=== PATIENT | male | born 1995 | race Caucasian/White ===

== ENCOUNTER 2018-02-07 17:27 | Emergency (ER) | payer SELFPAY ==
--- NOTE | 2018-02-07 19:30 | RAD REPORT ---
EXAM DESCRIPTION: RAD - Wrist Right 3 View - 02/07/2018 7:07 pm CLINICAL HISTORY: Injury, wrist pain, pain localizes to the triquetrum and fusiform bone region COMPARISON: None. FINDINGS: No fractures identified. There is no dislocation or periosteal reaction. Triquetrum and fu siform bones are difficult to assess on plain film. There is no dislocation or periosteal reaction no tanmay. Distal radius and ulna are intact. No foreign body or other soft tissue abnormality. IMPRESSION: No fracture or acute bone finding confirmed on this study. Continued, unexplained pain symptoms can be further addressed with MR imaging of the wrist.
--- NOTE | 2018-02-07 19:51 | EDPHYS ---
Physician Documentation [facility] Name: Yan Adams Age: 22 yrs Sex: Male : 1995 Arrival Date: 02/07/2018 Time: 17:29 Bed 23 Private MD: ED Physician Uriel Restrepo HPI: 02/07 18:05 This 22 yrs old Male presents to ER via Ambulatory with complaints of Wrist cp Injury. 18:05 The patient or guardian reports decreased range of motion, injury, pain, swelling, cp tenderness. Context: resulted from a fall, while playing basketball, on an outstretched hand. Onset: The symptoms/episode began/occurred yesterday. Modifying factors: the symptoms are aggravated by movement. Associated signs and symptoms: Pertinent negatives: cyanosis distally, decreased sensation distally, fever. Historical: - Allergies: 17:31 J\T\J band aids; hj 17:31 Morphine; hj - Home Meds: 17:31 None [Active]; hj - PMHx: 17:31 None; hj - PSHx: 17:31 L wrist; R shoulder; Appendectomy; Tonsillectomy; hj - Immunization history:: Adult Immunizations up to date. - Social history:: Smoking status: Patient/guardian denies using tobacco, never smoked. ROS: 18:10 Constitutional: Negative for body aches, chills, fever, poor PO intake. cp 18:10 Eyes: Negative for injury, pain, redness, and discharge. cp 18:10 Cardiovascular: Negative for chest pain, edema, palpitations. 18:10 Respiratory: Negative for cough, shortness of breath, wheezing. 18:10 Abdomen/GI: Negative for abdominal pain, nausea, vomiting, and diarrhea. 18:10 MS/extremity: Positive for decreased range of motion, pain, swelling, tenderness, of the right wrist, Negative for paresthesias. 18:10 Skin: Negative for cellulitis, laceration(s), rash. 18:10 All other systems are negative. Exam: 18:18 Constitutional: The patient appears in no acute distress, alert, awake, non-toxic, well cp developed, well nourished. 18:18 Head/Face: Normocephalic, atraumatic. cp 18:18 Eyes: Periorbital structures: appear normal, Conjunctiva: normal, no exudate, no injection, Lids and lashes: appear normal, bilaterally. 18:18 ENT: External ear(s): are unremarkable, Nose: is normal, Mouth: is normal, Posterior pharynx: is normal, airway is patent. 18:18 Neck: ROM/movement: is normal, is supple, without pain, no range of motions limitations, no nuchal rigidity. 18:18 Chest/axilla: Inspection: normal. 18:18 Cardiovascular: Rate: normal, Rhythm: regular, Pulses: Pulses are 2+ in right radial artery and left radial artery. 18:18 Respiratory: the patient does not display signs of respiratory distress, Respirations: normal, no use of accessory muscles, no retractions, no splinting, no tachypnea, labored breathing, is not present. 18:18 Abdomen/GI: Exam negative for discomfort, distension, guarding, Inspection: abdomen appears normal. 18:18 Musculoskeletal/extremity: Extremities: grossly normal except: noted in the ulna side right wrist: decreased ROM, pain, swelling, tenderness, ROM: limited passive range of motion due to pain, in the right wrist, Perfusion: the extremity is normally perfused throughout, Sensation intact. 18:18 Skin: cellulitis, is not appreciated, no rash present. Vital Signs: 17:31 BP 126 / 84; Pulse 68; Resp 18; Temp 98.3(TE); Pulse Ox 99% on R/A; Weight 69.85 kg; hj Height 5 ft. 10 in. (177.80 cm); Pain 10/10; 18:52 BP 124 / 80; Pulse 72; Resp 16; Pulse Ox 99% ; tl3 20:10 BP 133 / 68; Pulse 78; Resp 18; Pulse Ox 100% on R/A; tl3 17:31 Body Mass Index 22.10 (69.85 kg, 177.80 cm) hj MDM: 17:36 Patient medically screened. cp 18:30 Differential diagnosis: dislocation, closed fracture, contusion, tendonitis. cp 19:48 Data reviewed: vital signs, nurses notes, radiologic studies, plain films. cp 19:48 Test interpretation: by ED physician or midlevel provider: plain radiologic studies. cp Counseling: I had a detailed discussion with the patient and/or guardian regarding: the historical points, exam findings, and any diagnostic results supporting the discharge/admit diagnosis, radiology results, the need for outpatient follow up, a orthopedic surgeon, to return to the emergency department if symptoms worsen or persist or if there are any questions or concerns that arise at home. Response to treatment: the patient's symptoms have mildly improved after treatment. 02/07 17:55 Order name: XRAY Wrist RIGHT 3 view; Complete Time: 19:43 cp 02/07 19:48 Order name: Splint - Wrist; Complete Time: 20:03 cp Administered Medications: 20:00 Drug: Ibuprofen 800 mg Route: PO; tl3 20:36 Follow up: Response: No adverse reaction; Medication administered at discharge. tl3 Disposition: 23:28 Co-signature as Attending Physician, Uriel Restrepo MD I agree with the assessment and kdr plan of care. Disposition: 02/07/18 19:50 Discharged to Home. Impression: Right Wrist Injury. - Condition is Stable. - Discharge Instructions: Wrist Pain. - Prescriptions for Naprosyn 500 mg Oral Tablet - take 1 tablet by ORAL route 2 times per day take with food; 30 tablet. Tramadol 50 mg Oral Tablet - take 1 tablet by ORAL route every 8 hours as needed; 12 tablet. - Medication Reconciliation Form, Thank You Letter, Antibiotic Education, Prescription Opioid Use form. - Follow up: Alfonso Porras MD; When: 2 - 3 days; Reason: Recheck today's complaints. - Problem is new. - Symptoms have improved. Signatures: Dispatcher [employer] EDUriel Tai MD MD kdr Joaquin, Henry, RN RN Nicho José PA PA cp Lowrey, Tammy, RN RN tl3
--- NOTE | 2018-02-07 19:51 | ER ---
Nurse's Notes [facility] Name: Yan Adams Age: 22 yrs Sex: Male : 1995 Arrival Date: 02/07/2018 Time: 17:29 Bed 23 Private MD: Diagnosis: Right Wrist Injury Presentation: 02/07 17:29 Presenting complaint: Patient states: yesterday, i fell while playing basketball, and hj hurt my R wrist, it looks swollen now when i woke up;. Transition of care: patient was not received from another setting of care. Onset of symptoms was February 07, 2018. Care prior to arrival: None. 17:29 Method Of Arrival: Ambulatory 17:29 Acuity: JUICE 4 hj Triage Assessment: 17:31 General: Appears in no apparent distress. uncomfortable, Behavior is calm, cooperative, hj appropriate for age. Pain: Complains of pain in dorsal aspect of right wrist. Musculoskeletal: Reports pain in dorsal aspect of right wrist. 17:33 Injury Description: Crush injury. hj Historical: - Allergies: 17:31 J\T\J band aids; hj 17:31 Morphine; hj - Home Meds: 17:31 None [Active]; hj - PMHx: 17:31 None; hj - PSHx: 17:31 L wrist; R shoulder; Appendectomy; Tonsillectomy; hj - Immunization history:: Adult Immunizations up to date. - Social history:: Smoking status: Patient/guardian denies using tobacco, never smoked. Screenin:42 Abuse screen: Denies threats or abuse. Nutritional screening: No deficits noted. tl3 Tuberculosis screening: No symptoms or risk factors identified. Fall Risk None identified. Assessment: 17:42 General: Appears in no apparent distress. comfortable, slender, well groomed, well tl3 developed, well nourished, Behavior is calm, cooperative, appropriate for age. Pain: Complains of pain in lateral aspect of right hand and medial aspect of right hand Pain currently is 9 out of 10 on a pain scale. Neuro: Level of Consciousness is awake, alert, obeys commands, Oriented to person, place, time, situation, Appropriate for age. Cardiovascular: Heart tones S1 S2 present. Respiratory: Breath sounds are clear bilaterally. GI: No signs and/or symptoms were reported involving the gastrointestinal system. : No signs and/or symptoms were reported regarding the genitourinary system. EENT: No signs and/or symptoms were reported regarding the EENT system. Derm: No signs and/or symptoms reported regarding the dermatologic system. Musculoskeletal: Capillary refill < 3 seconds, in right fingers. pt wearing wrist splint. Injury Description: pt injured right wrist playing basketball yesterday, had wrist splint at home and utilized it for comfort, has been taking Motrin for pain, but hasn't had ant since this am. 18:52 Reassessment: Patient appears in no apparent distress at this time. No changes from tl3 previously documented assessment. Patient and/or family updated on plan of care and expected duration. Pain level reassessed. Patient is alert, oriented x 3, equal unlabored respirations, skin warm/dry/pink. waiting for results of x-ray. Vital Signs: 17:31 BP 126 / 84; Pulse 68; Resp 18; Temp 98.3(TE); Pulse Ox 99% on R/A; Weight 69.85 kg; Height 5 ft. 10 in. (177.80 cm); Pain 10/10; 18:52 BP 124 / 80; Pulse 72; Resp 16; Pulse Ox 99% ; tl3 20:10 BP 133 / 68; Pulse 78; Resp 18; Pulse Ox 100% on R/A; tl3 17:31 Body Mass Index 22.10 (69.85 kg, 177.80 cm) ED Course: 17:29 Patient arrived in ED. hj 17:30 Triage completed. hj 17:31 Arm band placed on left wrist. hj 17:36 Nicho Larose PA is PHCP. cp 17:36 Uriel Restrepo MD is Attending Physician. cp 17:37 Joseline Vega, SHABBIR is Primary Nurse. tl3 17:42 No apparent distress. Awaiting for x-ray. tl3 17:42 Patient has correct armband on for positive identification. Call light in reach. tl3 17:42 No provider procedures requiring assistance completed. Patient did not have IV access tl3 during this emergency room visit. 19:04 X-ray completed. Portable x-ray completed in exam room. Patient tolerated procedure la2 well. 19:05 XRAY Wrist RIGHT 3 view In Process Unspecified. EDMS 19:49 Alfonso Porras MD is Referral Physician. cp 20:10 Velcro wrist splint applied to right wrist. tl3 Administered Medications: 20:00 Drug: Ibuprofen 800 mg Route: PO; tl3 20:36 Follow up: Response: No adverse reaction; Medication administered at discharge. tl3 Outcome: 19:50 Discharge ordered by . cp 20:16 Patient left the ED. tl3 20:36 Discharged to home ambulatory. tl3 20:36 Condition: good 20:36 Discharge instructions given to patient, Instructed on discharge instructions, follow up and referral plans. medication usage, Demonstrated understanding of instructions, follow-up care, medications, Prescriptions given X 2, stressed rest, ice and elevation of right wrist, using splint for comfort and support Signatures: Dispatcher [employer] EDMS Noah Musa RN RN Nicho José PA PA cp Ardoin, Leslie la2 Joseline Vega, SHABBIR RN tl3 Corrections: (The following items were deleted from the chart) 17:33 17:31 Pulse 68bpm; Resp 18bpm; Pulse Ox 99% RA; Temp 98.3F Temporal; 69.85 kg; Height 5 hj ft. 10 in.; BMI: 22.1; Pain 10/10; hj 23:17 20:16 Patient left the ED. tl3 tl3
[2018-02-07] MEDS ORDERED: IBUPROFEN 400 MG TAB ONE (20:04)
== END 2018-02-07 20:16 | disposition home or self-care (01) ==
LOC: ER 17:27
DX: S69.91XA Unspecified injury of right wrist, hand and finger(s), initial encounter (principal); W19.XXXA Unspecified fall, initial encounter; Y93.67 Activity, basketball; Y92.9 Unspecified place or not applicable; Z88.5 Allergy status to narcotic agent; Z91.048 Other nonmedicinal substance allergy status
CPT/HCPCS: 99284

== ENCOUNTER 2020-03-05 08:44 | Emergency (ER) | payer SELFPAY ==
[2020-03-05 09:34] LABS: Urine Blood NEGATIVE (NEG); Urine Glucose NEGATIVE (NEG); Urine Protein NEGATIVE (NEG); Urine Specific Gravity 1.025 (1.005-1.030); Urine pH 8.5 (5.0-7.0)
--- OUTSIDE RECORDS SUMMARY | 2020-03-05 09:36 | XMS REPORT | Summary of Care ---
:1995 Author Organization [facility] Address [address] [place] [address] Care Team Providers Name Role Phone Zeferino Palafox MD Primary Care Provider Encounter Details Date Type Department Care Team Description 01/21/2020 Letter (Out) [facility] Family Travis Yeager FNP Medicine [facility] [address] [facility] [address] [address] [place] [address] [phone] Allergies No Known Allergiesdocumented as of this encounter (statuses as of 01/21/2020) Medications Medication Sig Dispensed Refills Start Date End Date Status acetaminophen 650 mg Take 1 tablet by 20 tablet 0 01/19/2020 Active CR tabletIndications: mouth every 8 Flu-like symptoms (eight) hours as needed for Pain. fluticasone propionate Use 1 [place] in 16 g 0 01/19/2020 Active 50 mcg/actuation nasal each nostril sprayIndications: daily. Flu-like symptoms brompheniramine-pseudo Take 10 mL by 120 mL 0 01/19/2020 Active ephedrine-DM (BROMFED mouth 4 (four) DM) 2-30-10 mg/5 mL times daily as syrupIndications: needed for Flu-like symptoms Congestion/Aller gies. ondansetron (ZOFRAN) 4 Take 1 tablet by 40 tablet 0 01/20/2020 02/03/2020 Active mg tabletIndications: mouth every 8 Nausea (eight) hours as needed for Nausea and Vomiting (N/V) for up to 14 days. documented as of this encounter (statuses as of 01/21/2020) Active Problems Problem Noted Date Flu-like symptoms 01/19/2020 Current smoker 01/19/2020 documented as of this encounter (statuses as of 01/21/2020) Social History Tobacco Use Types Packs/Day Years Used Date Never Assessed Sex Assigned at Date Recorded Not on file Job Start Date Occupation Industry Not on file Not on file Not on file Travel History Travel Start Travel End No recent travel history available. documented as of this encounter Last Filed Vital Signs Not on filedocumented in this encounter Plan of Treatment Health Maintenance Due Date Last Done Comments VARICELLA VACCINES (1 of 2 - 1994 2-dose childhood series) DTaP,Tdap,and Td Vaccines (1 - 2004 Tdap) INFLUENZA VACCINE (#1) 2019 HPV VACCINES Aged Out No longer eligib le based on patient's age to complete this topic PNEUMOCOCCAL 0-64 YEARS COMBINED Aged Out No longer eligible based on SERIES patient's age to complete this topic documented as of this encounter Results Not on filedocumented in this encounter
--- OUTSIDE RECORDS SUMMARY | 2020-03-05 09:36 | XMS REPORT | Summary of Care ---
:1995 Author Organization [facility] Address [address] [place] [address] Care Team Providers Name Role Phone Zeferino Palafox MD Primary Care Provider Reason for Visit Reason Comments Results Encounter Details Date Type Department Care Team Description 01/21/2020 Telephone [facility] Jelena Riggs RN Results [address] [phone] [place] [address] Allergies No Known Allergiesdocumented as of this encounter (statuses as of 01/21/2020) Medications Medication Sig Dispensed Refills Start Date End Date Status acetaminophen 650 mg Take 1 tablet by 20 tablet 0 01/19/2020 Active CR tabletIndications: mouth every 8 Flu-like symptoms (eight) hours as needed for Pain. fluticasone propionate Use 1 [place] in 16 g 0 01/19/2020 Active 50 [...]
--- OUTSIDE RECORDS SUMMARY | 2020-03-05 09:36 | XMS REPORT | Summary of Care ---
:1995 Author Organization [facility] Address [address] [place] [address] Care Team Providers Name Role Phone Zeferino Palafox MD Primary Care Provider Encounter Details Date Type Department Care Team Description 01/21/2020 Letter (Out) [facility] Ester Mendez FNP Urgent Care [address] [place] [address] [address] [place] [address] [place] [address] [phone] Allergies No Known Allergiesdocumented as of this encounter (statuses as of 01/21/2020) Medications Medication Sig Dispensed Refills Start Date End Date Status acetaminophen 650 mg Take 1 tablet by 20 tablet 0 01/19/2020 Active CR tabletIndications: mouth every 8 Flu-like symptoms (eight) hours as needed for Pain. fluticasone propionate Use 1 [place] in 16 g 0 01/19/2020 Active 50 [...] 1994 2-dose childhood series) DTaP,Tdap,and Td Vaccines ( - 2004 Tdap) INFLUENZA VACCINE (#1) 2019 HPV VACCINES Aged Out No longer eligib le based on patient's age to complete this topic PNEUMOCOCCAL 0-64 YEARS COMBINED Aged Out No longer eligible based on SERIES patient's age to complete this topic documented as of this encounter Results Not on filedocumented in this encounter
--- OUTSIDE RECORDS SUMMARY | 2020-03-05 09:36 | XMS REPORT | Summary of Care ---
:1995 Author Organization [facility] - [facility] Address [address] [place] [address] Care Team Providers Name Role Phone Zeferino Palafox MD Primary Care Provider Reason for Visit Reason Comments Headache Nausea Fever Chills Encounter Details Date Type Department Care Team Description 01/20/2020 Urgent Care [facility] Family Travis Yeager, VICE [employer]IDENT [employer] [address] [address] URI, acute (Primary Dx); Medicine - [facility] Fever, unspecified fever cause; [facility] Nausea; [employer], [place] Chronic migrain e; [id number] Seasonal allergies [phone] Allergies No Known Allergiesdocumented as of this encounter (statuses as of 01/20/2020) Medications Medication Sig Dispensed Refills Start Date End Date Status acetaminophen 650 mg Take 1 tablet by 20 tablet 0 01/19/2020 Active CR tabletIndications: mouth every 8 Flu-like symptoms (eight) hours as needed for Pain. fluticasone propionate Use 1 [place] in 16 g 0 01/19/2020 Active 50 [...] as of this encounter (statuses as of 01/20/2020) Active Problems Problem Noted Date Flu-like symptoms 01/19/2020 Current smoker 01/19/2020 documented as of this encounter (statuses as of 01/20/2020) Social History Tobacco Use Types Packs/Day Years Used Date Never Assessed Sex Assigned at Date Recorded Not on file Job Start Date Occupation Industry Not on file Not on file Not on file Travel History Travel Start Travel End No recent travel history available. documented as of this encounter Last Filed Vital Signs Vital Sign Reading Time Taken Comments Blood Pressure 125/81 01/20/2020 10:30 AM CDT Pulse 99 01/20/2020 10:30 AM CDT Temperature 38.2 C (100.7 F) 01/20/2020 10:30 AM CDT Respiratory Rate - - Oxygen Saturation 99% 01/20/2020 10:30 AM CDT Inhaled Oxygen Concentration - - Weight 72.6 kg (160 lb) 01/20/2020 10:30 AM CDT Height 175.3 cm (5' 9") 01/20/2020 10:30 AM CDT Body Mass Index 23.63 01/20/2020 10:30 AM CDT documented in this encounter Progress Notes Alda Yeager FNP - 01/20/2020 10:20 AM CDT Cc: Chief Complaint Patient presents with Headache Nausea Fever Chills Yan Adams is a 24 year old male. Onset of symptoms last night, after work started feeling pressure in both ears, feeling out of balance. everytime he swallowed the pressure releases. Then he had chills, took his temperature and it was99.3. moments later it went up to 100.3, then 100.5. He has been taking Tylenol since last night. Overall he feels ok, but he has HOUGH. He also has a hx of migraine and with each flare up of migraine he has nausea. He has been taking his medication for migraine with some relief. He called the prosthodontist doctor last night and was started on Bromfed, Tylenol and flonase. URI Presenting symptoms: congestion, ear pain and fever Presenting symptoms: no cough, no facial pain, no fatigue, no rhinorrhea and no sore throat Ear pain: Location: Bilateral (pressure ) Severity: Mild Onset quality: Gradual Duration: 1 day Timing: Constant Progression: Unchanged Chronicity: New Fever: Duration: 1 day Timing: Intermittent Max temp prior to arrival: 100.5 Temp source: Subjective Progression: Improving Severity: Mild Onset quality: Gradual Duration: 1 day Timing: Intermittent Progression: Improving Relieved by: OTC medications (tylenol) Worsened by: Nothing Associated symptoms: headaches (has chronic migraine), myalgias and sinus pain Associated symptoms: no swollen glands and no wheezing Headaches: Severity: Mild Onset quality: Gradual Duration: 1 day Timing: Intermittent Chronicity: Chronic Myalgias: Location: Generalized Quality: Aching Severity: Mild Onset quality: Gradual Duration: 1 day Timing: Constant Progression: Unchanged Risk factors: no recent travel and no sick contacts Allergies Yan has No Known Allergies. Medications Outpatient Medications Prior to Visit Medication Sig Dispense Refill acetaminophen 650 mg CR tablet Take 1 tablet by mouth every 8 (eight) hours as needed for Pain. 20 tablet 0 bgrwlsrymxyqoyu-wdliuqromalcipy-XT (BROMFED DM) 2-30-10 mg/5 mL syrup Take 10 mL by mouth 4 (four) times daily as needed for Congestion/Allergies. 120 mL 0 fluticasone propionate 50 mcg/actuation nasal spray Use 1 [place] in each nostril daily. 16 g 0 No facility-administered medications prior to visit. Histories No past medical history on file. No past surgical history on file. Social History Socioeconomic History Marital status: Spouse name: Not on file Number of children: Not on file Years of education: Not on file Highest education level: Not on file Occupational History Not on file Social Needs Financial resource strain: Not on file Food insecurity: Worry: Not on file Inability: Not on file Transportation needs: Medical: Not on file Non-medical: Not on file Tobacco Use Smoking status: Not on file Substance and Sexual Activity Alcohol use: Not on file Drug use: Not on file Sexual activity: Not on file Lifestyle Physical activity: Days per week: Not on file Minutes per session: Not on file Stress: Not on file Relationships Social connections: Talks on phone: Not on file Gets together: Not on file Attends sikhism service: Not on file Active member of club or organization: Not on file Attends meetings of clubs or organizations: Not on file Relationship status: Not on file Intimate partner violence: Fear of current or ex partner: Not on file Emotionally abused: Not on file Physically abused: Not on file Forced sexual activity: Not on file Other Topics Concern Not on file Social History Narrative Not on file No family history on file. Review of Systems Constitutional: Positive for fever. Negative for activity change, appetite change, chills and fatigue. HENT: Positive for congestion, ear pain and sinus pain. Negative for rhinorrhea, sore throat, trouble swallowing and voice change. Eyes: Negative. Respiratory: Negative. Negative for cough, chest tightness, shortness of breath and wheezing. Cardiovascular: Negative. Negative for chest pain and palpitations. Gastrointestinal: Negative. Musculoskeletal: Positive for myalgias. Neurological: Positive for headaches (has chronic migraine). Negative for syncope, weakness and light-headedness. Psychiatric/Behavioral: Negative. Endocrine: Endocrine negative Vital Signs BP 125/81 | Pulse 99 | Temp 38.2 C (100.7 F) (Oral) | Ht 5' 9" (1.753 m) | Wt 160 lb (72.6 kg) | SpO2 99% | BMI 23.63 kg/m Physical Exam Constitutional: He is oriented to person, place, and time. He appears well- developed. No distress. HENT: Head: Normocephalic. Right Ear: Hearing, tympanic membrane, external ear and ear canal normal. Left Ear: Hearing, tympanic membrane, external ear and ear canal normal. Nose: Rhinorrhea present. No mucosal edema or sinus tenderness. Right sinus exhibits maxillary sinustenderness and frontal sinus tenderness. Left sinus exhibits maxillary sinus tenderness and frontal sinus tenderness. Mouth/Throat: Uvula is midline, oropharynx is clear and moist and mucous membranes are normal. No tonsillar exudate. Cardiovascular: Normal rate, regular rhythm, normal heart sounds and intact distal pulses. Exam reveals no gallop and no friction rub. No murmur heard. Pulmonary/Chest: Effort normal and breath sounds normal. No stridor. No respiratory distress. He hasno wheezes. He has no rales. He exhibits no tenderness. Abdominal: Soft. Bowel sounds are normal. Lymphadenopathy: Head (right side): No submental, no submandibular, no tonsillar, no preauricular and no posterior auricular adenopathy present. Head (left side): No submental, no submandibular, no tonsillar, no preauricular and no posterior auricular adenopathy present. He has no cervical adenopathy. Neurological: He is alert and oriented to person, place, and time. Skin: Skin is warm and dry. Capillary refill takes less than 2 seconds. Psychiatric: He has a normal mood and affect. Nursing note and vitals reviewed. Assessment/Plan 1. Fever: POCT flu done and was negative. covid sent to rule that out. He is given a work excuse for5 days pending lab result. You visited a COVID 19 clinic today were tested for COVID. We are still awaiting results. At this time, we recommend that you remain in self quarantine until the results are back. This process is taking approximately 5 days. We will contact you with the results and instructions upon their receipt. 2. URI acute: Continue medications given by prosthodontist doctor, the goal is to treat symptoms for now. Rest Increase clear fluid intake to maintain hydration. Vitamin C Cover nose and mouth when coughing and sneezing. HAND HYGIENE (with alcohol gels or hand washing) Advised to take Tylenol as per label recommendation for fever. Dark Chocolate helps with cough (xanthenes) Irrigate your nose with normal saline moisture spray 2 or 3 times a day. You may use a spray, squeeze bottle, or nasal pot. - Advised to follow up with PCP, return to Urgent Care, or go to the nearest Emergency Department sooner for any new, worsening, persistent, or concerning symptoms. 3. Migraine with Nausea: continue previously prescribed medication. Zofran added as needed. If worsepain ever, please go tot he ER for further eval. Monitor for triggers, and avoid any known triggers. 4. Seasonal allergies: Take some antihistamine OTC if with known hx of seasonal allergies. Stay away from or limit your time near the allergen cautious with OTC decongestant due to risk of rebound and considering HTN Antihistamines block the release of histamine during the allergic response. They work better whentaken before symptoms develop. Unless a prescription antihistamine was prescribed, you can take qapo-tqw-uvuttnm antihistamines that do not cause drowsiness Steroid nasal sprays or oral steroids may also be prescribed for more severe symptoms. These helpto reduce the local inflammation that can add to the allergic response. With asthma, pollen season may make your asthma symptoms worse. It is important that you use yourasthma medicines as directed during this time to prevent or treat attacks. Some persons with asthma have asthma symptoms that get worse when they take antihistamines. This is due to the drying effect on the lungs. If you notice this, stop the antihistamines, drink extra fluids and notify your doctor. If you have sinus congestion or drainage, a saline nasal rinse may give relief. A saline nasal rinse lessens the swelling and clears excess mucus. This allows sinuses to drain. Prepackaged kits are sold at most drug stores. These contain pre-mixed salt packets and an irrigation device. Plan of care, desired health behaviors, goals, and medication discussed with patient. Education resources provided and reviewed with AVS. Patient/guardian/family verbalized understanding & agrees to plan of care. This visit did not involve counseling and coordination that comprised more than 50% of the visit time. If applicable, the [place] [employer] database was accessed to review any controlled substance prescription claims data. The [employer] prescription claims data in [place] was reviewed to assess patient compliance with the medication treatment plan. documented in this encounter Plan of Treatment Name Type Priority Associated Diagnoses Order S chedule CORONAVIRUS COVID-19 LAB Routine URI, acute Expected: 01/20/2020, TESTING Fever, unspecified fever Exp ires: 01/19/2021 cause Nausea Health Maintenance Due Date Last Done Comments [...] this topic documented as of this encounter Procedures Procedure Name Priority Date/Time Associated Diagnosis Comme nts POCT FLU A AND B Routine 01/20/2020 URI, acute Results for this (MOLECULAR) Fever, unspecified procedure are in the fever cause results section. Nausea documented in this encounter Results POCT FLU A AND B (MOLECULAR) (01/20/2020) Pathologist Sig nature POCT INFLUENZA A Negative Negative - Negative POCT INFLUENZA B Negative Negative - Negative Specimen Swab documented in this encounter Visit Diagnoses Diagnosis URI, acute - Primary Acute upper respiratory infections of un specified site Fever, unspecified fever cause Nausea Nausea alone Chronic migraine Chronic migraine without aura, without m ention of intractable migraine without mention of status migrainosus Seasonal allergies Allergic rhinitis, cause unspecified documented in this encounter
--- OUTSIDE RECORDS SUMMARY | 2020-03-05 09:36 | XMS REPORT | Summary of Care ---
:1995 Author Organization [facility] Address [address] [place] [id number] Care Team Providers Name Role Phone Zeferino Palafox MD Primary Care Provider Reason for Visit Reason Comments Results Encounter Details Date Type Department Care Team Description 01/21/2020 Telephone ACCESS CENTER Jelena Riggs RN Results [address] [phone] [place] [address] Allergies No Known Allergiesdocumented as of this encounter (statuses as of 01/21/2020) Medications Medication Sig Dispensed Refills Start Date End Date Status acetaminophen 650 mg Take 1 tablet by 20 tablet 0 01/19/2020 Active CR tabletIndications: mouth every 8 Flu-like symptoms (eight) hours as needed for Pain. fluticasone propionate Use 1 [place] in 16 g 0 01/19/2020 Active 50 [...]
--- OUTSIDE RECORDS SUMMARY | 2020-03-05 09:36 | XMS REPORT | Summary of Care ---
:1995 Author Organization [facility] - [facility] Address [address] [id number] Care Team Providers Name Role Phone Zeferino Palafox MD Primary Care Provider Encounter Details Date Type Department Care Team Description 01/20/2020 Orders Only [facility] Doctor Unassigned, No [address] [facility] [place] [address] [address] [place] [address] Allergies No Known Allergiesdocumented as of this encounter (statuses as of 01/23/2020) Medications Medication Sig Dispensed Refills Start Date End Date Status acetaminophen 650 mg Take 1 tablet by 20 tablet 0 01/19/2020 Active CR tabletIndications: mouth every 8 Flu-like symptoms (eight) hours as needed for Pain. fluticasone propionate Use 1 [place] in 16 g 0 01/19/2020 Active 50 [...] as of this encounter (statuses as of 01/23/2020) Active Problems Problem Noted Date Flu-like symptoms 01/19/2020 Current smoker 01/19/2020 documented as of this encounter (statuses as of 01/23/2020) Social History Tobacco Use Types Packs/Day Years [...] Due Date Last Done Comments VARICELLA VACCINES ( of - 1994 2-dose childhood series) DTaP,Tdap,and Td [...] Name Priority Date/Time Associated Diagnosis Comme nts ASSIGNMENT OF BENEFITS Routine 01/20/2020 12:01 AM CDT documented in this encounter Results Not on filedocumented in this encounter
--- OUTSIDE RECORDS SUMMARY | 2020-03-05 09:36 | XMS REPORT ---
:[address] [facility] t Address [address] [place] [address] [address] [place] [address] Care Team Providers Name Role Phone Unavailable Unavailable Unavailable Payers Payer Name Policy Type Policy Number Effective Date Expiration D ate Problems This patient has no known problems. Allergies, Adverse Reactions, Alerts Allergy Allergy Status Severity Reaction(s) Onset Inactive Treating C omments Name Type Date Date Clinician morphine DA Active MO 2019-10 00:00:0 0 Medications This patient has no known medications. Results Test Description Test Time Test Comments Text Results Atomic Results Result Comments INFLUENZA A B PCR 2019-11-06 11:02:00 Test Item Value Reference Range Comments INFLUENZA A PCR (test code = NEGATIVE NEGATIVE FLUAPCR) INFLUENZA B PCR (test code = POSITIVE NEGATIVE RE ANASTASIIATS CALLED TO [facility] FLUBPCR) GALO.READ B ACK & CONFIRMED? .BY NEELA 1102.
[2020-03-05 10:23] LABS: Urine Bacteria <20 /HPF (NONE SEEN); Urine RBC <5 /HPF (NONE SEEN)
--- NOTE | 2020-03-05 10:23 | RAD REPORT ---
EXAM DESCRIPTION: US - Scrotum Testicles - 03/05/2020 10:16 am CLINICAL HISTORY: right groin pain Testicular pain COMPARISON: No comparisons FINDINGS: The right testicle 3.5 x 2.6 x 2.2 cm. No intratesticular masses or evidence of testicular torsion. The left testicle 3.3 x 2.5 x 2.2 cm. No intratesticular masses or evidence of testicular torsion. Both epididymides are normal in size and appearance. No pathologic fluid collections. IMPRESSION: Unremarkable study.
[2020-03-05 10:24] LABS: Urine Amorphous Sediment 3+ /HPF (NONE SEEN); Urine Culture Reflex Order NOT NEEDED
[2020-03-05] MEDS ORDERED: CEFTRIAXONE 1000 MG/VIAL ONE (10:49)
[2020-03-05] MEDS ORDERED: KETOROLAC 30 MG/ML INJ ONE (10:49)
[2020-03-05] MEDS ORDERED: AZITHROMYCIN 250 MG TAB ONE (10:49)
[2020-03-05] MEDS ORDERED: LIDOCAINE 1% MPF 2 ML AMPULE ONE (10:49)
--- NOTE | 2020-03-05 10:55 | ER ---
Nurse's Notes [facility] Name: Yan Adams Age: 24 yrs Sex: Male : 1995 Arrival Date: 03/05/2020 Time: 08:45 Bed 5 Private MD: Diagnosis: Scrotal pain Presentation: 03/05 08:52 Chief complaint: Patient states: right testicular pressure/pain/swelling started last sv night and R groin pressure. Coronavirus screen: Proceed with normal triage. Patient denies a cough. Patient denies shortness of breath or difficulty breathing. Patient denies measured and/or subjective temperature greater than 100.4F prior to today's visit. Patient denies travel on a cruise ship or to a country the [facility] currently lists as an affected area. Patient denies contact with known and/or suspected case of COVID-19. Ebola Screen: No symptoms or risks identified at this time. Initial Sepsis Screen: Does the patient meet any 2 criteria? No. Patient's initial sepsis screen is negative. Does the patient have a suspected source of infection? No. Patient's initial sepsis screen is negative. Risk Assessment: Do you want to hurt yourself or someone else? Patient reports no desire to harm self or others. Onset of symptoms was March 04, 2020. 08:52 Acuity: JUICE 3 sv 08:52 Method Of Arrival: Ambulatory sv Triage Assessment: 08:52 General: Appears in no apparent distress. uncomfortable, well developed, Behavior is sv calm, cooperative, appropriate for age. Pain: Complains of pain in right testicle and right femoral area Pain currently is 6 out of 10 on a pain scale. Neuro: Level of Consciousness is awake, alert, obeys commands, Oriented to person, place, time, situation, Moves all extremities. Full function Gait is steady. Respiratory: Airway is patent Respiratory effort is even, unlabored, Respiratory pattern is regular, symmetrical. Derm: Skin is pink, warm \T\ dry. Historical: - Allergies: 09:04 J\T\J band aids; sv 09:04 Morphine; sv - PMHx: 09:04 None; sv - PSHx: 09:04 L wrist; R shoulder; Appendectomy; Tonsillectomy; sv - Immunization history:: Adult Immunizations up to date. - Social history:: Smoking status: . Screenin:52 Abuse screen: Denies threats or abuse. Denies injuries from another. Nutritional sv screening: No deficits noted. Tuberculosis screening: No symptoms or risk factors identified. Fall Risk None identified. Assessment: 09:41 Reassessment: Patient appears in no apparent distress at this time. No changes from sv previously documented assessment. Patient and/or family updated on plan of care and expected duration. Pain level reassessed. Patient is alert, oriented x 3, equal unlabored respirations, skin warm/dry/pink. 11:11 Reassessment: Patient appears in no apparent distress at this time. No changes from sv previously documented assessment. Patient and/or family updated on plan of care and expected duration. Pain level reassessed. Patient is alert, oriented x 3, equal unlabored respirations, skin warm/dry/pink. Vital Signs: 08:52 BP 129 / 88; Pulse 88; Resp 16; Temp 98.9; Pulse Ox 98% ; Weight 74.39 kg; Height 5 ft. sv 8 in. (172.72 cm); Pain 6/10; 09:43 BP 118 / 71; Pulse 58; Resp 16; Pulse Ox 100% ; sv 10:55 BP 109 / 75; Pulse 59; Resp 16; Pulse Ox 100% ; sv 08:52 Body Mass Index 24.94 (74.39 kg, 172.72 cm) sv ED Course: 08:45 Patient arrived in ED. ag5 08:52 Cris Holden, SHABBIR is Primary Nurse. sv 08:52 Juan Card NP is PHCP. pm1 08:52 Nicho Hartley MD is Attending Physician. pm1 08:52 Arm band placed on. sv 08:52 Patient has correct armband on for positive identification. Placed in gown. Bed in low sv position. Call light in reach. Pulse ox on. NIBP on. Door closed. Head of bed elevated. 09:04 Triage completed. sv 09:36 US Scrotum Testicles In Process Unspecified. EDMS 09:41 Awaiting lab results, Awaiting radiology results. sv 10:25 No provider procedures requiring assistance completed. Patient did not have IV access sv during this emergency room visit. Administered Medications: 10:53 Drug: TORadol 60 mg Route: IM; Site: right gluteus; sv 11:11 Follow up: Response: No adverse reaction sv 10:54 Drug: Rocephin (cefTRIAXone) 1 grams Route: IM; Site: right gluteus; sv 11:11 Follow up: Response: No adverse reaction sv 10:54 Drug: AZITHromycin 1 grams Route: PO; sv 11:11 Follow up: Response: No adverse reaction sv Outcome: 10:55 Discharge ordered by . pm1 11:11 Discharged to home ambulatory. sv 11:11 Condition: stable 11:11 Discharge instructions given to patient, Instructed on discharge instructions, follow up and referral plans. Demonstrated understanding of instructions, follow-up care. 11:11 Patient left the ED. sv Signatures: Dispatcher [employer] Cris Farmer RN RN Juan Rae NP BRIM STIFFENER pm1 Denise Ma 5
--- NOTE | 2020-03-05 10:56 | EDPHYS ---
Physician Documentation [facility] Name: Yan Adams Age: 24 yrs Sex: Male : 1995 Arrival Date: 03/05/2020 Time: 08:45 Bed 5 Private MD: Nicho Taveras HPI: 03/05 09:06 This 24 yrs old Male presents to ER via Ambulatory with complaints of pm1 Testicular Pain. 09:06 The patient presents with scrotal pain, of the right side, with swelling. Onset: The pm1 symptoms/episode began/occurred yesterday. Modifying factors: The symptoms are alleviated by nothing, the symptoms are aggravated by movement, Walking. Associated signs and symptoms: Pertinent negatives: abdominal pain, dysuria, fever, nausea, vomiting. Severity of symptoms: in the emergency department the symptoms are actually worse. The patient has not experienced similar symptoms in the past. The patient has not recently seen a physician. Historical: - Allergies: 09:04 J\T\J band aids; sv 09:04 Morphine; sv - PMHx: 09:04 None; sv - PSHx: 09:04 L wrist; R shoulder; Appendectomy; Tonsillectomy; sv - Immunization history:: Adult Immunizations up to date. - Social history:: Smoking status: . ROS: 09:06 Constitutional: Negative for fever, chills, and weight loss. pm1 09:06 Cardiovascular: Negative for chest pain, palpitations, and edema, Respiratory: Negative pm1 for shortness of breath, cough, wheezing, and pleuritic chest pain, Abdomen/GI: Negative for abdominal pain, nausea, vomiting, diarrhea, and constipation, Back: Negative for injury and pain. 09:06 MS/Extremity: Negative for injury and deformity, Skin: Negative for injury, rash, and discoloration, Neuro: Negative for headache, weakness, numbness, tingling, and seizure. 09:06 : Positive for testicular pain of the groin, Negative for burning with urination, difficulty urinating, penile discharge, penile pain. Exam: 09:06 Constitutional: This is a well developed, well nourished patient who is awake, alert, pm1 and in no acute distress. Head/Face: Normocephalic, atraumatic. Chest/axilla: Normal chest wall appearance and motion. Nontender with no deformity. No lesions are appreciated. 09:06 Back: No spinal tenderness. No costovertebral tenderness. Full range of motion. Skin: Warm, dry with normal turgor. Normal color with no rashes, no lesions, and no evidence of cellulitis. MS/ Extremity: Pulses equal, no cyanosis. Neurovascular intact. Full, normal range of motion. 09:06 Cardiovascular: Exam negative for acute changes, Rate: normal, Rhythm: regular, Pulses: no pulse deficits are appreciated. 09:06 Respiratory: Exam negative for acute changes, respiratory distress, shortness of breath. 09:06 Abdomen/GI: Inspection: abdomen appears normal, Palpation: abdomen is soft and non-tender, in all quadrants, mass, is not appreciated, rebound tenderness, is not appreciated. 09:06 : Male external genitalia: penile discharge, is absent, tenderness, of the right testicle is noted, of the epididymis area, that is mild. 09:06 Neuro: Exam negative for acute changes, Orientation: is normal, Mentation: is normal, Motor: is normal, Gait: is steady, at a normal pace, without difficulty. Vital Signs: 08:52 BP 129 / 88; Pulse 88; Resp 16; Temp 98.9; Pulse Ox 98% ; Weight 74.39 kg; Height 5 ft. sv 8 in. (172.72 cm); Pain 6/10; 09:43 BP 118 / 71; Pulse 58; Resp 16; Pulse Ox 100% ; sv 10:55 BP 109 / 75; Pulse 59; Resp 16; Pulse Ox 100% ; sv 08:52 Body Mass Index 24.94 (74.39 kg, 172.72 cm) sv MDM: 08:52 Patient medically screened. pm1 10:53 Data reviewed: vital signs. Data interpreted: Pulse oximetry: on room air is 100 %. pm1 Interpretation: normal. Counseling: I had a detailed discussion with the patient and/or guardian regarding: the historical points, exam findings, and any diagnostic results supporting the discharge/admit diagnosis, lab results, radiology results, the need for outpatient follow up, for definitive care, a urologist, to return to the emergency department if symptoms worsen or persist or if there are any questions or concerns that arise at home. 03/05 09:01 Order name: Urine Microscopic Only; Complete Time: 10:27 pm1 03/05 09:15 Order name: Urine Dipstick--Ancillary (enter results); Complete Time: 09:38 em1 03/05 09:01 Order name: US Scrotum Testicles; Complete Time: 10:27 pm1 03/05 09:01 Order name: Urine Dipstick-Ancillary (obtain specimen); Complete Time: 09:14 pm1 Administered Medications: 10:53 Drug: TORadol 60 mg Route: IM; Site: right gluteus; sv 11:11 Follow up: Response: No adverse reaction sv 10:54 Drug: Rocephin (cefTRIAXone) 1 grams Route: IM; Site: right gluteus; sv 11:11 Follow up: Response: No adverse reaction sv 10:54 Drug: AZITHromycin 1 grams Route: PO; sv 11:11 Follow up: Response: No adverse reaction sv Disposition: 20:24 Co-signature as Attending Physician, Nicho Hartley MD I agree with the assessment and juan j plan of care. Disposition: 03/05/20 10:55 Discharged to Home. Impression: Scrotal pain. - Condition is Stable. - Discharge Instructions: Epididymitis, Testicular Self-Exam. - Work release form, Medication Reconciliation Form, Thank You Letter, Antibiotic Education, Prescription Opioid Use form. - Follow up: Emergency Department; When: As needed; Reason: Worsening of condition. Follow up: Private Physician; When: 2 - 3 days; Reason: Recheck today's complaints, Continuance of care, Re-evaluation by your physician. - Problem is new. - Symptoms have improved. Signatures: Dispatcher [employer] Cris Farmer RN RN sv Anderson, Corey, MD MD cha Marinas, Patrick, ATTRACTION ATTENDANT ATTRACTION ATTENDANT pm1 Corrections: (The following items were deleted from the chart) 11: 10:55 03/05/2020 10:55 Discharged to Home. Impression: Scrotal pain. Condition is sv Stable. Forms are Medication Reconciliation Form, Thank You Letter, Antibiotic Education, Prescription Opioid Use. Follow up: Emergency Department; When: As needed; Reason: Worsening of condition. Follow up: Private Physician; When: 2 - 3 days; Reason: Recheck today's complaints, Continuance of care, Re-evaluation by your physician. Problem is new. Symptoms have improved. pm1
[2020-03-05 11:22] VITALS: TEMP 98.9
[2020-03-05 11:24] VITALS: O2SAT 100
[2020-03-05 11:25] VITALS: BP 109/75
== END 2020-03-05 11:11 | disposition home or self-care (01) ==
LOC: ER 08:44
DX: N50.82 Scrotal pain (principal); Z88.5 Allergy status to narcotic agent; Z91.048 Other nonmedicinal substance allergy status
CPT/HCPCS: 76870; 81003; 81015; 96372; 99284; J2001

== ENCOUNTER 2020-11-25 08:11 | Emergency (ER) | payer SELFPAY ==
--- OUTSIDE RECORDS SUMMARY | 2020-11-25 08:12 | XMS REPORT | Continuity of Care Document ---
:1995 Author Organization [facility] t Address [address] [place] [address] Care Team Providers Name Role Phone Oneil RN, Jelena Romero Attending Clinician Unavailable Doctor Unassigned, Name Attending Clinician Unavailable Payers Payer Name Policy Type Policy Number Effective Date Expiration Date S ource Problems This patient has no known problems. Allergies, Adverse Reactions, Alerts Allergy Allergy Status Severity Reaction(s) Onset Inactive Treating Comm ents Source Name Type Date Date Clinician morphine DA Active [place] 11-06 [facility] Medications This patient has no known medications. Procedures This patient has no known procedures. Encounters Start End Encounter Admission Attending Care Care Encounter Source Date/Time Date/Time Type Type Clinicians Facility Department ID 2020-01-21 2020-01-21 Telephone JOSE RAUL Riggs [id number] 00:00:00 00:00:00 Jelena BUCKLEY [id number] [facility] [id number] 2020-01-20 2020-01-20 Orders Doctor JOSE RAUL [id number] 00:00:00 00:00:00 Only UnassignedMARCIO [id number] [place] [id number] Results Test Description Test Time Test Comments Results Result Comments Source INFLUENZA A B PCR 2019-11-06 11:02:00 Test Item Value Reference Range Interpretation Comme nts INFLUENZA A PCR (test code = NEGATIVE NEGATIVE FLUAPCR) INFLUENZA B PCR (test code = POSITIVE NEGATIVE A RESULTS CALLED TO LAN[facility] FLUBPCR) GALO.READ BACK & CONFIRMED? .BY LOLA 11/06/19 1102.
--- NOTE | 2020-11-25 09:11 | EDPHYS ---
Physician Documentation [facility] Name: Yan Adams Age: 25 yrs Sex: Male : 1995 Arrival Date: 11/25/2020 Time: 08:14 Bed 4 Private MD: ED Physician Sary Crowley HPI: 11/25 09:08 This 25 yrs old Male presents to ER via Ambulatory with complaints of ma2 Shoulder Injury. 09:08 The patient or guardian complains of decreased range of motion, pain. Onset: The ma2 symptoms/episode began/occurred suddenly, 1 hour(s) ago. Associated signs and symptoms: Pertinent negatives: dyspnea, Numbness in left arm. Severity of symptoms: At their worst the symptoms were mild, in the emergency department the symptoms are unchanged. The patient has not experienced similar symptoms in the past. Historical: - Allergies: 08:28 Morphine; ss - Home Meds: 08:28 None [Active]; ss - PMHx: 08:28 None; ss - PSHx: 08:28 L wrist; R shoulder; Appendectomy; Tonsillectomy; ss - Immunization history:: Adult Immunizations up to date. - Social history:: Smoking status: Patient denies any tobacco usage or history of. - Family history:: not pertinent. ROS: 09:08 Cardiovascular: Negative for chest pain, palpitations, and edema. ma2 09:08 All other systems are negative. Exam: 09:08 Constitutional: This is a well developed, well nourished patient who is awake, alert, ma2 and in no acute distress. Chest/axilla: Normal chest wall appearance and motion. Nontender with no deformity. No lesions are appreciated. Cardiovascular: Regular rate and rhythm with a normal S1 and S2. No gallops, murmurs, or rubs. Normal PMI, no JVD. No pulse deficits. Respiratory: Lungs have equal breath sounds bilaterally, clear to auscultation and percussion. No rales, rhonchi or wheezes noted. No increased work of breathing, no retractions or nasal flaring. Abdomen/GI: Soft, non-tender, with normal bowel sounds. No distension or tympany. No guarding or rebound. No evidence of tenderness throughout. Skin: Warm, dry with normal turgor. Normal color with no rashes, no lesions, and no evidence of cellulitis. MS/ Extremity: anterior [place] is tender, however no deformity or limited rom, Pulses equal, no cyanosis. Neurovascular intact. Full, normal range of motion. Neuro: Awake and alert, GCS 15, oriented to person, place, time, and situation. Cranial nerves II-XII grossly intact. Motor strength 5/5 in all extremities. Sensory grossly intact. Cerebellar exam normal. Normal gait. Vital Signs: 08:26 BP 139 / 96; Pulse 68; Resp 16; Temp 98.9(TE); Pulse Ox 100% ; Weight 77.11 kg; Height ss 5 ft. 10 in. (177.80 cm); Pain 7/10; 08:26 Body Mass Index 24.39 (77.11 kg, 177.80 cm) ss MDM: 08:30 Patient medically screened. ma2 09:08 Differential diagnosis: Anterior dislocation with fracture, Anterior dislocation ma2 without fracture, Posterior dislocation with fracture, Posterior dislocation without fracture, humeral head fracture, tendonitis. Data reviewed: vital signs, nurses notes. Counseling: I had a detailed discussion with the patient and/or guardian regarding: the historical points, exam findings, and any diagnostic results supporting the discharge/admit diagnosis, the presence of at least one elevated blood pressure reading (>120/80) during this emergency department visit, the need for outpatient follow up. Response to treatment: the patient's symptoms have markedly improved after treatment. 11/25 08:31 Order name: Shoulder Left (2 View) XRAY ma2 11/25 08:56 Order name: Sling; Complete Time: 09:15 [facility] Administered Medications: 09:15 CANCELLED (per Dr. Crowley): Motrin 800 mg PO once hb 09:15 Drug: TORadol 30 mg Route: IM; Site: right deltoid; hb 09:30 Follow up: Response: No adverse reaction hb Disposition: 11/25/20 09:10 Discharged to Home. Impression: Pain in left shoulder. - Condition is Stable. - Discharge Instructions: Joint Pain, Musculoskeletal Pain, Magnetic Resonance Imaging, [place]. - Prescriptions for Diclofenac Sodium 75 mg Oral Tablet Sustained Release - take 1 tablet by ORAL route 2 times per day; 30 tablet. - Medication Reconciliation Form, Thank You Letter, Antibiotic Education, Prescription Opioid Use, Work release form form. - Follow up: Private Physician; When: Tomorrow; Reason: Continuance of care. - Notes: If pain persist for more than 1 week, see your primary care doctor for possible shoulder MRI. Signatures: Dispatcher [employer] Lucinda Maldonado RN RN Radha Dinh RN RN Sary Crowley MD MD sc2 Corrections: (The following items were deleted from the chart) 09:15 08:56 Motrin 800 mg PO once ordered. ma2 hb 09:15 09:14 Motrin 800 mg PO once ordered. hb hb 09:31 09:10 11/25/2020 09:10 Discharged to Home. Impression: Pain in left shoulder. Condition hb is Stable. Forms are Medication Reconciliation Form, Thank You Letter, Antibiotic Education, Prescription Opioid Use. Follow up: Private Physician; When: Tomorrow; Reason: Continuance of care. ma2
--- NOTE | 2020-11-25 09:11 | ER ---
Nurse's Notes [facility] Name: Yan Adams Age: 25 yrs Sex: Male : 1995 Arrival Date: 11/25/2020 Time: 08:14 Bed 4 Private MD: Diagnosis: Pain in left shoulder Presentation: 11/25 08:26 Chief complaint: Patient states: L shoulder pain that began 1 hour ago after lifting ss daughter out of crib. Pt reports a hx of shoulder dislocations and believes his shoulder may be out. Coronavirus screen: Client denies travel out of the [place] in the last 14 days. Ebola Screen: Patient denies exposure to infectious person. Patient denies travel to an Ebola-affected area in the 21 days before illness onset. Initial Sepsis Screen: Does the patient meet any 2 criteria? No. Patient's initial sepsis screen is negative. Does the patient have a suspected source of infection? No. Patient's initial sepsis screen is negative. Risk Assessment: Do you want to hurt yourself or someone else? Patient reports no desire to harm self or others. Onset of symptoms was November 25, 2020 at 07:00. 08:26 Method Of Arrival: Ambulatory ss 08:26 Acuity: JUICE 3 ss Historical: - Allergies: 08:28 Morphine; ss - Home Meds: 08:28 None [Active]; ss - PMHx: 08:28 None; ss - PSHx: 08:28 L wrist; R shoulder; Appendectomy; Tonsillectomy; ss - Immunization history:: Adult Immunizations up to date. - Social history:: Smoking status: Patient denies any tobacco usage or history of. - Family history:: not pertinent. Screenin:39 Abuse screen: Denies threats or abuse. Denies injuries from another. Nutritional hb screening: No deficits noted. Tuberculosis screening: No symptoms or risk factors identified. Fall Risk None identified. Assessment: 08:39 General: Appears in no apparent distress. Behavior is calm, cooperative. Pain: Pain hb currently is 7 out of 10 on a pain scale. Neuro: Level of Consciousness is awake, alert, obeys commands, Oriented to person, place, time, situation. Cardiovascular: Capillary refill < 3 seconds Patient's skin is warm and dry. Respiratory: Respiratory effort is even, unlabored, Respiratory pattern is regular, symmetrical. GI: No signs and/or symptoms were reported involving the gastrointestinal system. : No signs and/or symptoms were reported regarding the genitourinary system. EENT: No signs and/or symptoms were reported regarding the EENT system. Derm: Skin is pink, warm \T\ dry. Musculoskeletal: Reports left shoulder pain. 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 Discharge pending shot time. Vital Signs: 08:26 BP 139 / 96; Pulse 68; Resp 16; Temp 98.9(TE); Pulse Ox 100% ; Weight 77.11 kg; Height ss 5 ft. 10 in. (177.80 cm); Pain 7/10; 08:26 Body Mass Index 24.39 (77.11 kg, 177.80 cm) ED Course: 08:14 Patient arrived in ED. mr 08:28 Triage completed. 08:28 Arm band placed on right wrist. 08:30 Sary Crowley MD is Attending Physician. ma2 08:39 Radha Dinh, RN is Primary Nurse. hb 08:39 Patient has correct armband on for positive identification. Bed in low position. Call hb light in reach. Side rails up X 1. 09:05 Shoulder Left (2 View) XRAY In Process Unspecified. EDMS 09:30 No provider procedures requiring assistance completed. Patient did not have IV access hb during this emergency room visit. Administered Medications: 09:15 CANCELLED (per Dr. Crowley): Motrin 800 mg PO once hb 09:15 Drug: TORadol 30 mg Route: IM; Site: right deltoid; hb 09:30 Follow up: Response: No adverse reaction hb Outcome: 09:10 Discharge ordered by . ma2 09:30 Discharged to home ambulatory. hb 09:30 Condition: stable 09:30 Discharge instructions given to patient, Instructed on discharge instructions, follow up and referral plans. medication usage, Demonstrated understanding of instructions, follow-up care, medications, Prescriptions given X 1. 09:31 Patient left the ED. hb Signatures: Dispatcher [facility] AlbertoGeraldine Shelby, RN RN Radha Dinh, SHABBIR SHEA Alzahri, Mohammad, MD MD ma2
[2020-11-25] MEDS ORDERED: IBUPROFEN 400 MG TAB ONE (09:26)
[2020-11-25] MEDS ORDERED: KETOROLAC 30 MG/ML INJ ONE (09:29)
[2020-11-25 09:47] VITALS: BP 139/96; TEMP 98.9; O2SAT 100
--- NOTE | 2020-11-25 10:05 | RAD REPORT ---
EXAM DESCRIPTION: RAD - Shoulder Left 2 View - 11/25/2020 9:05 am CLINICAL HISTORY: Left shoulder pain FINDINGS: No fracture or dislocation is seen. Mild narrowing AC joint
== END 2020-11-25 09:31 | disposition home or self-care (01) ==
LOC: ER 08:11
DX: M25.512 Pain in left shoulder (principal); X50.0XXA Overexertion from strenuous movement or load, initial encounter; Y93.89 Activity, other specified; Y92.013 Bedroom of single-family (private) house as the place of occurrence of the external cause; Z88.6 Allergy status to analgesic agent
CPT/HCPCS: 96372; 99283